=== PATIENT | female | born 2000 | race Caucasian/White ===

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

== ENCOUNTER 2022-04-01 14:36 | Emergency (ER) | payer MEDICAID ==
[~2022-04-01] VITALS: Ht 175.3 cm; Wt 116.2 kg
--- NOTE | 2022-04-01 14:57 | ED GU-Female ---
General Chief Complaint: Abdominal/GI Problems Stated Complaint: NAUSEA, VAG ITCHING Source: patient, other Exam Limitations: no limitations History of Present Illness Date Seen by Provider: Apr 01, 2022 Time Seen by Provider: 14:40 Initial Comments Patient to the ER by private conveyance from home with chief complaint that for the better part of weeks has been having some dysuria and now mild discharge. She has had some nausea but no fever or chills. She was given an examination and urinalysis at the [facility] in [place] 2-3 days ago and determined she had a urinary tract infection. Nausea medicines and antibiotics were sent to the [facility] pharmacy in [place]. They went to the pharmacy but they were not available yet so when they called the pharmacy they were closed. In the ensuing 2 days they apparently stopped attempting to collect the antibiotics. Her significant other says that they did not have gas money to get down to the pharmacy. She is not on control. Last menstrual period was within the past 2 weeks. She has not had STD in the past. She would like testing today. Allergies and Home Medications Allergies Coded Allergies: No Known Drug Allergies (Unverified , 09/12/19) Patient Home Medication List Home Medication List Reviewed: Yes Albuterol Sulfate (Proair Hfa) 1 Puff Puff, 2 PUFF IH Q4H Prescribed by: SHARIF MENDOSA on 06/14/192044 Ondansetron (Ondansetron Odt) 4 Mg Tab.rapdis, 4 MG PO Q6H Prescribed by: MONE PLEITEZ on 06/18/19 144 Ondansetron (Ondansetron Odt) 4 Mg Tab.rapdis, 4 MG PO Q6H Prescribed by: SHARIF MENDOSA on 06/28/19 192 Ondansetron (Ondansetron Odt) 4 Mg Tab.rapdis, 4 MG PO Q8H Prescribed by: YESENIA MAURO on 09/12/19 1151 Ondansetron (Ondansetron Odt) 4 Mg Tab.rapdis, 4 MG PO Q8H Prescribed by: YESENIA MAURO on 09/12/19 0912 Review of Systems Review of Systems Constitutional: No chills, No fever, No malaise EENTM: No ear discharge, No ear pain Respiratory: No cough, No phlegm Cardiovascular: No chest pain, No palpitations Gastrointestinal: No abdominal pain; nausea; No vomiting Genitourinary: discharge, dysuria; denies hematuria Musculoskeletal: No back pain, No joint pain All Other Systemes Reviewed Negative Unless Noted: Yes Past Stzeofg-Tzpawn-Redtwf Hx Patient Social History Tobacco Use?: No Use of E-Cig and/or Vaping dev: No Substance use?: No Seasonal Allergies Seasonal Allergies: No Past Medical History Surgeries: Yes Appendectomy, Gallbladder Respiratory: No Cardiac: No Neurological: Yes Genitourinary: No Gastrointestinal: No Musculoskeletal: No Endocrine: No HEENT: No Cancer: No Psychosocial: No Integumentary: No Blood Disorders: No Physical Exam Vital Signs Vital Signs - First Documented 04/01/22 14:40 Temp 36.3 Pulse 105 Resp 16 B/P (MAP) 195/78 (117) Pulse Ox 100 O2 Delivery Room Air Capillary Refill : Height, Weight, BMI Height: 5'6.00" Weight: 211lbs. oz. 95.397131vn; 34.00 BMI Method:Stated General Appearance: WD/WN, no apparent distress HEENT: PERRL/EOMI, pharynx normal Neck: full range of motion, supple, normal inspection Cardiovascular: normal peripheral pulses, regular rate, rhythm Respiratory: no respiratory distress, no accessory muscle use Gastrointestinal: normal bowel sounds, non tender, soft Genital/Rectal: normal genital exam, other (External genitalia normal. No drainage noted.) Neurologic/Psychiatric: alert, normal mood/affect, oriented x 3 Skin: normal color, warm/dry Progress/Results/Core Measures Suspected Sepsis SIRS Temperature: Pulse: Respiratory Rate: Blood Pressure / Mean: Results/Orders Lab Results Laboratory Tests Test 04/01/22 14:42 04/01/22 15:05 Range/Units Urine Color YELLOW Urine Clarity SL CLOUDY Urine pH 6.0 5-9 Urine Specific Ririe >=1.030 1.016-1.022 Urine Protein NEGATIVE NEGATIVE Urine Glucose (UA) NEGATIVE NEGATIVE Urine Ketones NEGATIVE NEGATIVE Urine Nitrite NEGATIVE NEGATIVE Urine Bilirubin NEGATIVE NEGATIVE Urine Urobilinogen 0.2 < = 1.0 MG/DL Urine Leukocyte Esterase TRACE H NEGATIVE Urine RBC (Auto) NEGATIVE NEGATIVE Urine RBC NONE /HPF Urine WBC 10-25 H /HPF Urine Squamous Epithelial Cells 25-50 H /HPF Urine Crystals NONE /LPF Urine Bacteria FEW H /HPF Urine Casts NONE /LPF Urine Mucus MODERATE H /LPF Urine Culture Indicated YES Micro Results Microbiology 04/01/22 Wet Prep - Final, Complete My Orders Orders - KIN ANDRADE Ua Culture If Indicated (04/01/22 14:43) Urine Bedside (04/01/22 14:43) Neis Elroy Dna Urine Test (04/01/22 14:52) Chlamydia Trachomatis Urine (04/01/22 14:52) Ceftriaxone (Rocephin) (04/01/22 15:00) Azithromycin Tablet (Zithromax Tablet) (04/01/22 15:00) Lidocaine 1% Inj 20 Ml (Xylocaine 1% Inj (04/01/22 15:00) Syphilis Antibody Screen (04/01/22 14:57) Wet Prep (04/01/22 14:57) Azithromycin Tablet (Zithromax Tablet) (04/01/22 15:15) Azithromycin Tablet (Zithromax Tablet) (04/01/22 15:16) Urine Culture (04/01/22 14:42) Medications Given in ED Current Medications Medications Dose Ordered Sig/Delma Route Start Time Stop Time Status Last Admin Dose Admin Azithromycin 1,000 mg ONCE ONCE PO 04/01/22 15:00 04/01/22 15:17 DC 04/01/22 15:24 750 MG Ceftriaxone Sodium 1,000 mg ONCE ONCE IM 04/01/22 15:00 04/01/22 15:02 DC 04/01/22 15:24 1,000 MG Lidocaine HCl 2.1 ml ONCE ONCE INJ 04/01/22 15:00 04/01/22 15:02 DC 04/01/22 15:24 2.1 ML Vital Signs/I&O 04/01/22 14:40 Temp 36.3 Pulse 105 Resp 16 B/P (MAP) 195/78 (117) Pulse Ox 100 O2 Delivery Room Air Capillary Refill : Progress Note #1: Time: 14:59 Progress Note We will do a pelvic exam. Asked her partner to step out of the room. We will give her a gram of Rocephin, a gram of azithromycin and do a wet prep. When we had the patient alone we did some questionnaires about patient's safety and her situation and she screened negative to all of our questions. Progress Note #2: Time: 15:29 Progress Note Unfortunately our supply on hand of azithromycin was only 3 tablets of 250 mg each. We will give her the 750 mg and have her molded goods spot picker another 250 mg tablet at the pharmacy. We will also have her molded goods spot picker Flagyl twice daily for 7 days for her bacterial vaginitis. Departure Impression Primary Impression: Bacterial vaginitis Disposition: HOME, SELF-CARE Condition: Stable Departure-Patient Inst. Decision time for Depature: 16:14 Referrals: NO,LOCAL PHYSICIAN (PCP/Family) Primary Care Physician Patient Instructions: Bacterial Vaginosis (DC) Add. Discharge Instructions: You have an overgrowth of bacteria in the vagina causing the itching discharge. This is not a sexually transmitted disease. Flagyl twice a day for a week we will take care of this infection. Drink plenty of fluids. Ondansetron 1 tablet every 6 hours as needed for nausea or vomiting. The rest of your tests will result out in the next few days and we will call you with results next week if they are positive. You do not need to molded goods spot picker the other antibiotics that were sent out for you. We did not have enough azithromycin to give you today so molded goods spot picker 1 tablet from the pharmacy and take it today soon as you get it. All discharge instructions reviewed with patient and/or family. Voiced understanding. Scripts Azithromycin (Azithromycin) 250 Mg Tablet 250 MG PO ONCE, #1 TAB 0 Refills Prov: KIN ANDRADE 04/01/22 Metronidazole (Metronidazole) 500 Mg Tablet 500 MG PO BID for 7 Days, #14 TAB 0 Refills Prov: KIN ANDRADE 04/01/22 Ondansetron (Ondansetron Odt) 4 Mg Tab.rapdis 4 MG PO Q6H PRN for NAUSEA/VOMITING, #8 TAB 0 Refills Prov: KIN ANDRADE 04/01/22 KIN ANDRADE Apr 01, 2022 14:56
[2022-04-01] MEDS ORDERED: LIDOCAINE 1% INJ 20 ML VIAL INJ ONE (15:00)
[2022-04-01] MEDS ORDERED: cefTRIAXone 1,000 MG VIAL IM ONE (15:00)
[2022-04-01] MEDS ORDERED: AZITHROMYCIN 250 MG TAB (ZITHROMAX) PO ONE ×2 (15:00→15:16)
[2022-04-01] MEDS ORDERED: AZITHROMYCIN 250 MG TAB (ZITHROMAX) PO STA (15:15)
[2022-04-01 15:26] LABS: BILIRUBIN,URINE NEGATIVE (NEGATIVE); CLARITY,URINE SL CLOUDY; COLOR,URINE YELLOW; GLUCOSE, URINE (UA) NEGATIVE (NEGATIVE); KETONES,URINE NEGATIVE (NEGATIVE); LEUKOCYTE ESTERASE ,URINE TRACE (NEGATIVE); NITRITE,URINE NEGATIVE (NEGATIVE); PROTEIN,URINE NEGATIVE (NEGATIVE)
[2022-04-01 15:31] LABS: BACTERIA,URINE FEW /HPF; SQUAMOUS EPITHELIAL CELL,UR 25-50 /HPF
[2022-04-01] MEDS ORDERED: ONDA4TAB11 PO (16:16)
[2022-04-01] MEDS ORDERED: METR-145 PO (16:16)
[2022-04-01] MEDS ORDERED: AZIT250T12 PO (16:17)
[2022-04-01 16:23] VITALS: BP 182/78
== END 2022-04-01 16:22 | disposition home or self-care (01) ==
LOC: EDUNIT# 14:36 → ER FS 14:41
DX: N76.0 Acute vaginitis (principal); B96.89 Other specified bacterial agents as the cause of diseases classified elsewhere
CPT/HCPCS: 36415; 81000; 84703; 86780; 87077; 87088; 87210; 87491; 87591; 99284

== ENCOUNTER 2022-05-03 23:34 | Emergency (ER) | payer MEDICAID ==
[~2022-05-03] VITALS: Ht 175.2 cm; Wt 117.9 kg
[~2022-05-03 23:34] MED LIST changes: +AZIT250T12 PO; +METR-145 PO
[2022-05-03] MEDS ORDERED: OFL.3OP5 OP (23:56)
--- NOTE | 2022-05-03 23:57 | ED EENT ---
History of Present Illness General Chief Complaint: Eye Problems Stated Complaint: RIGHT PAIN Source: patient Exam Limitations: no limitations History of Present Illness Date Seen by Provider: May 03, 2022 Time Seen by Provider: 11:45 Initial Comments Patient is a 21-year-old female presents with right eye irritation and matting. Symptoms onset was earlier this today. Reports eye watering. Denies change in vision. Timing/Duration: gradual Severity: mild Location: eye (R) Prearrival Treatment: other Allergies and Home Medications Allergies Coded Allergies: No Known Drug Allergies (Unverified , 09/12/19) Patient Home Medication List Home Medication List Reviewed: Yes Albuterol Sulfate (Proair Hfa) 1 Puff Puff, 2 PUFF IH Q4H Prescribed by: SHARIF MENDOSA on 06/14/192044 Azithromycin (Azithromycin) 250 Mg Tablet, 250 MG PO ONCE Prescribed by: KIN ANDRADE on 04/01/22 161 Metronidazole (Metronidazole) 500 Mg Tablet, 500 MG PO BID Prescribed by: KIN ANDRADE on 04/01/22 161 Ondansetron (Ondansetron Odt) 4 Mg Tab.rapdis, 4 MG PO Q6H Prescribed by: MONE PLEITEZ on 06/18/19 1442 Ondansetron (Ondansetron Odt) 4 Mg Tab.rapdis, 4 MG PO Q6H Prescribed by: SHARIF MENDOSA on 06/28/19 1920 Ondansetron (Ondansetron Odt) 4 Mg Tab.rapdis, 4 MG PO Q8H Prescribed by: YESENIA MAURO on 09/12/19 1151 Ondansetron (Ondansetron Odt) 4 Mg Tab.rapdis, 4 MG PO Q8H Prescribed by: YESENIA MAURO on 09/12/19 0912 Ondansetron (Ondansetron Odt) 4 Mg Tab.rapdis, 4 MG PO Q6H PRN for NAUSEA/VOMITING Prescribed by: KIN ANDRADE on 04/01/22 1616 Review of Systems Review of Systems Constitutional: see HPI Eyes: See HPI Past Fbryoii-Basvvn-Hgfzma Hx Patient Social History Tobacco Use?: No Seasonal Allergies Seasonal Allergies: No Past Medical History Surgeries: Yes Appendectomy, Gallbladder Respiratory: No Cardiac: No Neurological: Yes Genitourinary: No Gastrointestinal: No Musculoskeletal: No Endocrine: No HEENT: No Cancer: No Psychosocial: No Integumentary: No Blood Disorders: No Visual Acuity : Eye Location: Right Physical Exam Vital Signs Reviewed Height, Weight, BMI Height: 5'6.00" Weight: 211lbs. oz. 95.919729zr; 37.00 BMI Method:Stated General Appearance: no apparent distress Eyes: right eye conjunctival inflammation; bilateral eye normal inspection, bilateral eye PERRL Nose: normal inspection Mouth/Throat: normal mouth inspection Departure Communication (Admissions) Bacterial pinkeye involving right eye. Antibiotics prescribed Impression Primary Impression: Bacterial conjunctivitis of right eye Disposition: HOME, SELF-CARE Condition: Stable Departure-Patient Inst. Decision time for Depature: 23:54 Referrals: MARGARITA KIMBROUGH MD (PCP/Family) Primary Care Physician Patient Instructions: Conjunctivitis (Pinkeye) Add. Discharge Instructions: Please fill antibiotics and continue to use until 2 days after symptoms fully resolved. Avoid rubbing eye, touching hard surfaces as pinkeye is highly contagious. Follow-up with your PCP and/or eye doctor if further concerns. All discharge instructions reviewed with patient and/or family. Voiced understanding. Scripts Ofloxacin (Ocuflox) 0.3 % Soln 2 DROP OP Q3HR, #5 EA Prov: MONE PLEITEZ DO 05/03/22 MONE PLEITEZ DO May 03, 2022 23:57
[2022-05-04 00:10] VITALS: BP 142/84
== END 2022-05-04 00:10 | disposition home or self-care (01) ==
LOC: EDUNIT# 23:34 → ER FS 23:37
DX: H10.31 Unspecified acute conjunctivitis, right eye (principal); Z28.311 Partially vaccinated for COVID-19
CPT/HCPCS: 99281

== ENCOUNTER 2022-10-29 08:33 | Emergency (ER) | payer MEDICAID ==
[~2022-10-29] VITALS: Ht 172.7 cm; Wt 127.0 kg
[~2022-10-29 08:33] MED LIST changes: +ALBU8.5H6 IH; +OFL.3OP5 OP; -RT-ALBUINH IH
[2022-10-29] MEDS ORDERED: ONDANSETRON 4 MG/2 ML (SDV) Z0FRAN IVP ONE (09:15)
[2022-10-29] MEDS ORDERED: LACTATED RINGERS 1,000 ML IV ONE (09:15)
--- NOTE | 2022-10-29 09:21 | ED Abdominal Pain ---
General Chief Complaint: Abdominal/GI Problems Stated Complaint: NAUSEA | VOMITING Nursing Triage Note: PT AMBULATE TO ROOM 06 WITHOUT DIFFICULTY WITH C/O N/V X3 DAYS. Source of Information: Patient Exam Limitations: No Limitations History of Present Illness Date Seen by Provider: Oct 29, 2022 Time Seen by Provider: 09:05 Initial Comments This 22-year-old young lady presents to the emergency room with primary complaints of vomiting for 3 or 4 days and epigastric pain. She also had diarrhea couple of days ago. She denies fever. She has had mild cough. She has had no known sick exposures, particularly to influenza or COVID-19. She has been able to drink. She last vomited this morning. She admits to being sexually active without any contraceptive protection. Her last LMP was October 21. Dr. Hinkle is her primary care provider but she has not seen him for quite some time. She has not taken any medications to try to alleviate her symptoms. Patient is the historian. She is here with her boyfriend who has also had vomiting for 1 day. Allergies and Home Medications Allergies Coded Allergies: No Known Drug Allergies (Unverified , 09/12/19) Patient Home Medication List Home Medication List Reviewed: Yes Albuterol Sulfate (Ventolin Hfa) 1 Puff Puff, 2 PUFF IH Q4H Prescribed by: SHARIF MENDOSA on 06/14/192044 Azithromycin (Azithromycin) 250 Mg Tablet, 250 MG PO ONCE Prescribed by: KIN ANDRADE on 04/01/22 1617 Metronidazole (Metronidazole) 500 Mg Tablet, 500 MG PO BID Prescribed by: KIN ANDRADE on 04/01/22 161 Ofloxacin (Ocuflox) 0.3 % Soln, 2 DROP OP Q3HR Prescribed by: MONE PLEITEZ on 05/03/22 2356 Ondansetron (Ondansetron Odt) 4 Mg Tab.rapdis, 4 MG PO Q6H Prescribed by: MONE PLEITEZ on 06/18/19 1442 Ondansetron (Ondansetron Odt) 4 Mg Tab.rapdis, 4 MG PO Q6H Prescribed by: SHARIF MENDOSA on 06/28/19 192 Ondansetron (Ondansetron Odt) 4 Mg Tab.rapdis, 4 MG PO Q8H Prescribed by: YESENIA MAURO on 09/12/19 1151 Ondansetron (Ondansetron Odt) 4 Mg Tab.rapdis, 4 MG PO Q8H Prescribed by: YESENIA MAURO on 09/12/19 0912 Ondansetron (Ondansetron Odt) 4 Mg Tab.rapdis, 4 MG PO Q6H PRN for NAUSEA/VOMITING Prescribed by: KIN ANDRADE on 04/01/22 1616 Ondansetron (Ondansetron Odt) 4 Mg Tab.rapdis, 4 MG SL Q4H PRN for NAUSEA/VOMITING Prescribed by: DIDI ORANTES on 10/29/22 1109 Review of Systems Review of Systems Constitutional: no symptoms reported EENTM: No Symptoms Reported Respiratory: See HPI Cardiovascular: No Symptoms Reported Gastrointestinal: See HPI Genitourinary: No Symptoms Reported Musculoskeletal: no symptoms reported Skin: no symptoms reported Psychiatric/Neurological: No Symptoms Reported Endocrine: No Symptoms Reported Hematologic/Lymphatic: No Symptoms Reported Past Ibpxisp-Hfatus-Qcptsc Hx Patient Social History Tobacco Use?: No Smoking Status: Never a Smoker Smokeless Tobacco Frequency: Never a User Use of E-Cig and/or Vaping dev: No Use of E-Cig and/or Vaping Valentin: Never a User Substance use?: No Alcohol Use?: No Pt feels they are or have been: No Immunizations Up To Date First/Initial COVID19 Vaccinat: dose 1 date? Seasonal Allergies Seasonal Allergies: No Past Medical History Surgery/Hospitalization HX: seizure disorder Surgeries: Yes Appendectomy, Gallbladder Respiratory: No Cardiac: No Neurological: Yes : No Last Menstrual Period: Oct 21, 2022 Reproductive Disorders: No Genitourinary: No Gastrointestinal: No Musculoskeletal: No Endocrine: No HEENT: No Cancer: No Psychosocial: No Integumentary: No Blood Disorders: No Physical Exam Vital Signs Vital Signs - First Documented 10/29/22 08:46 Temp 37.0 Pulse 80 Resp 19 B/P (MAP) 134/78 (96) O2 Delivery Room Air Capillary Refill : Less Than 3 Seconds Height/Weight/BMI Height: 5'6.00" Weight: 211lbs. oz. 95.800759nn; 42.00 BMI Method:Stated General Appearance: WD/WN, no apparent distress, obese HEENT: PERRL/EOMI, normal ENT inspection, other (Oropharynx pasty) Neck: normal inspection Respiratory: lungs clear, normal breath sounds, no respiratory distress Cardiovascular: regular rate, rhythm, no edema, no murmur Gastrointestinal: normal bowel sounds, soft, tenderness (Epigastrium and left upper quadrant) Extremities: normal inspection, no pedal edema Neurologic/Psychiatric: no motor/sensory deficits, alert, normal mood/affect, oriented x 3 Skin: normal color, warm/dry Progress/Results/Core Measures Results/Orders Lab Results Laboratory Tests Test 10/29/22 08:55 10/29/22 09:38 10/29/22 09:50 Range/Units Influenza Type A (RT-PCR) Not Detected Not Detecte Influenza Type B (RT-PCR) Not Detected Not Detecte SARS-CoV-2 RNA (RT-PCR) Not Detected Not Detecte White Blood Count 7.9 4.3-11.0 10^3/uL Red Blood Count 4.32 3.80-5.11 10^6/uL Hemoglobin 12.6 11.5-16.0 g/dL Hematocrit 38 35-52 % Mean Corpuscular Volume 88 80-99 fL Mean Corpuscular Hemoglobin 29 25-34 pg Mean Corpuscular Hemoglobin Concent 33 32-36 g/dL Red Cell Distribution Width 12.3 10.0-14.5 % Platelet Count 248 130-400 10^3/uL Mean Platelet Volume 10.6 9.0-12.2 fL Immature Granulocyte % (Auto) 0 % Neutrophils (%) (Auto) 71 42-75 % Lymphocytes (%) (Auto) 22 12-44 % Monocytes (%) (Auto) 4 0-12 % Eosinophils (%) (Auto) 2 0-10 % Basophils (%) (Auto) 0 0-10 % Neutrophils # (Auto) 5.7 1.8-7.8 10^3/uL Lymphocytes # (Auto) 1.7 1.0-4.0 10^3/uL Monocytes # (Auto) 0.3 0.0-1.0 10^3/uL Eosinophils # (Auto) 0.1 0.0-0.3 10^3/uL Basophils # (Auto) 0.0 0.0-0.1 10^3/uL Immature Granulocyte # (Auto) 0.0 0.0-0.1 10^3/uL Sodium Level 137 135-145 MMOL/L Potassium Level 4.1 3.6-5.0 MMOL/L Chloride Level 107 98-107 MMOL/L Carbon Dioxide Level 19 L 21-32 MMOL/L Anion Gap 11 5-14 MMOL/L Blood Urea Nitrogen 12 7-18 MG/DL Creatinine 0.75 0.60-1.30 MG/DL Estimat Glomerular Filtration Rate 117 BUN/Creatinine Ratio 16 Glucose Level 92 70-105 MG/DL Calcium Level 9.4 8.5-10.1 MG/DL Corrected Calcium 9.2 8.5-10.1 MG/DL Magnesium Level 2.0 1.6-2.4 MG/DL Total Bilirubin 0.7 0.1-1.0 MG/DL Aspartate Amino Transf (AST/SGOT) 17 5-34 U/L Alanine Aminotransferase (ALT/SGPT) 17 0-55 U/L Alkaline Phosphatase 101 40-136 U/L Total Protein 8.3 H 6.4-8.2 GM/DL Albumin 4.2 3.2-4.5 GM/DL Lipase 9 8-78 U/L Serum Test, Qualitative NEGATIVE NEGATIVE Urine Color YELLOW Urine Clarity CLEAR Urine pH 6.0 5-9 Urine Specific Ucon >=1.030 1.016-1.022 Urine Protein NEGATIVE NEGATIVE Urine Glucose (UA) NEGATIVE NEGATIVE Urine Ketones NEGATIVE NEGATIVE Urine Nitrite NEGATIVE NEGATIVE Urine Bilirubin NEGATIVE NEGATIVE Urine Urobilinogen 0.2 < = 1.0 MG/DL Urine Leukocyte Esterase NEGATIVE NEGATIVE Urine RBC (Auto) NEGATIVE NEGATIVE Urine RBC NONE /HPF Urine WBC RARE /HPF Urine Squamous Epithelial Cells 5-10 /HPF Urine Crystals NONE /LPF Urine Bacteria NEGATIVE /HPF Urine Casts NONE /LPF Urine Mucus NEGATIVE /LPF Urine Culture Indicated NO My Orders Orders - DIDI AGUILA MD Covid 19 Inhouse Test (10/29/22 08:46) Influenza A And B By Pcr (10/29/22 08:46) Isolation Central Supply Req (10/29/22 08:46) Ed Iv/Invasive Line Start (10/29/22 09:15) Lactated Ringers (Lr 1000 Ml Iv Solution (10/29/22 09:15) Ondansetron Injection (Zofran Injectio (10/29/22 09:15) Cbc With Automated Diff (10/29/22 09:15) Comprehensive Metabolic Panel (10/29/22 09:15) Hcg,Qualitative Serum (10/29/22 09:15) Lipase (10/29/22 09:15) Magnesium (10/29/22 09:15) Ua Culture If Indicated (10/29/22 09:16) Medications Given in ED Current Medications Medications Dose Ordered Sig/Delma Route Start Time Stop Time Status Last Admin Dose Admin Lactated Ringer's 1,000 ml @ 0 mls/hr Q0M ONCE IV 10/29/22 09:15 10/29/22 09:17 DC 10/29/22 09:30 999 MLS/HR Ondansetron HCl 8 mg ONCE ONCE IVP 10/29/22 09:15 10/29/22 09:17 DC 10/29/22 09:30 8 MG Vital Signs/I&O 10/29/22 08:46 Temp 37.0 Pulse 80 Resp 19 B/P (MAP) 134/78 (96) O2 Delivery Room Air Blood Pressure Mean: 96 Progress Progress Note #1: Time: 09:20 Progress Note Patient has been interviewed and examined. Influenza and COVID swab has been collected. She will be hydrated with IV fluids and labs checked including CBC, CMP, magnesium, serum test, and urinalysis. Zofran 8 mg IV has been ordered for treatment of nausea. Anticipate giving antacid therapy later as well. Further treatment or work-up will depend on results of her testing and response to treatment. Progress Note #2: Time: 11:26 Progress Note Patient was feeling significantly improved after treatment. Labs were reviewed by me and discussed with the patient. Labs were relatively unremarkable including viral swabs, CBC, CMP, test, urinalysis, and magnesium. Clear liquid diet advancing to a bland diet was discussed with the patient. Zofran was prescribed. Antacid therapy was recommended. See discharge instructions for further discussion. Patient was discharged in improved condition. Departure Impression Primary Impression: Nausea and vomiting Qualified Codes: R11.2 - Nausea with vomiting, unspecified Additional Impression: Epigastric pain Disposition: 01 HOME, SELF-CARE Condition: Improved Departure-Patient Inst. Decision time for Depature: 11:07 Referrals: NO,LOCAL PHYSICIAN (PCP/Family) Primary Care Physician Patient Instructions: Abdominal Pain, Adult ED Add. Discharge Instructions: Start with a noncarbonated clear liquid diet. If you are feeling better this evening, you may gradually advance your diet with small quantities of bland food as tolerated. Avoid fatty/greasy foods, dairy products, spicy foods, and other irritating foods and beverages until least 48 hours after symptoms resolve. Obtain Pepcid (famotidine) [id number] and take 20 mg twice daily for at least the next 5 days. Drink plenty of clear liquids stay well-hydrated. Take Zofran (ondansetron) as prescribed for nausea or vomiting. Return to the emergency room if you have worsening symptoms despite following these instructions. All discharge instructions reviewed with patient and/or family. Voiced understanding. Scripts Ondansetron (Ondansetron Odt) 4 Mg Tab.rapdis 4 MG SL Q4H PRN for NAUSEA/VOMITING, #10 TAB Prov: DIDI AGUILA MD 10/29/22 Work/School Note: Work Release Form Date Seen in the Emergency Department: Oct 29, 2022 Return to Work: Oct 30, 2022 Restrictions: Return-No Fever (24hrs), Return-No Vomiting(24hrs) DIDI AGUILA MD Oct 29, 2022 09:21
[2022-10-29 09:48] LABS: BASOPHILS % (AUTO) 0 % (0-10); EOSINOPHILS # (AUTO) 0.1 10^3/uL (0.0-0.3); EOSINOPHILS % (AUTO) 2 % (0-10); HEMATOCRIT 38 % (35-52); HEMOGLOBIN 12.6 g/dL (11.5-16.0); LYMPHOCYTES # (AUTO) 1.7 10^3/uL (1.0-4.0); LYMPHOCYTES % (AUTO) 22 % (12-44); MEAN CORPUSCULAR HEMOGLOBIN 29 pg (25-34); MEAN CORPUSCULAR HGB CONC 33 g/dL (32-36); MEAN CORPUSCULAR VOLUME 88 fL (80-99); MEAN PLATELET VOLUME 10.6 fL (9.0-12.2); MONOCYTES # (AUTO) 0.3 10^3/uL (0.0-1.0); MONOCYTES % (AUTO) 4 % (0-12); NEUTROPHILS # (AUTO) 5.7 10^3/uL (1.8-7.8); NEUTROPHILS % (AUTO) 71 % (42-75); PLATELET COUNT 248 10^3/uL (130-400); WHITE BLOOD COUNT 7.9 10^3/uL (4.3-11.0)
[2022-10-29 09:55] LABS: BILIRUBIN,URINE NEGATIVE (NEGATIVE); CLARITY,URINE CLEAR; COLOR,URINE YELLOW; GLUCOSE, URINE (UA) NEGATIVE (NEGATIVE); KETONES,URINE NEGATIVE (NEGATIVE); LEUKOCYTE ESTERASE ,URINE NEGATIVE (NEGATIVE); NITRITE,URINE NEGATIVE (NEGATIVE); PROTEIN,URINE NEGATIVE (NEGATIVE)
[2022-10-29 09:59] LABS: ALBUMIN 4.2 GM/DL (3.2-4.5)
[2022-10-29 10:01] LABS: CALCIUM 9.4 MG/DL (8.5-10.1)
[2022-10-29 10:02] LABS: POTASSIUM 4.1 MMOL/L (3.6-5.0); TOTAL PROTEIN 8.3 GM/DL (6.4-8.2)
[2022-10-29 10:04] LABS: BILIRUBIN,TOTAL 0.7 MG/DL (0.1-1.0)
[2022-10-29 10:06] LABS: CREATININE SERUM 0.75 MG/DL (0.60-1.30)
[2022-10-29 10:09] LABS: BACTERIA,URINE NEGATIVE /HPF; WBC,URINE RARE /HPF
[2022-10-29] MEDS ORDERED: ONDA4TAB11 SL (11:09)
[2022-10-29 11:18] VITALS: BP 146/82
== END 2022-10-29 11:18 | disposition home or self-care (01) ==
LOC: EDUNIT# 08:33 → ER 08:37
DX: R11.2 Nausea with vomiting, unspecified (principal); R10.13 Epigastric pain; Z20.822 Contact with and (suspected) exposure to COVID-19; Z32.02 Encounter for pregnancy test, result negative; Z28.311 Partially vaccinated for COVID-19
CPT/HCPCS: 36415; 80053; 81000; 83690; 83735; 84703; 85025; 87636; 99283